=== PATIENT | female | born 2000 | race Caucasian/White ===

== ENCOUNTER 2020-07-27 15:27 | Emergency (ER) | payer OTHER, SELFPAY ==
--- NOTE | ~2020-07-27 | XR_ITS ---
XR hand LT min 3V DATE: 07/27/2020 16:57 INDICATION: Injury to left thumb. Pain. Diminished youth support worker. TECHNIQUE: 3 views COMPARISON: None FINDINGS: No fracture or dislocation, periosteal reaction or bone destruction. IMPRESSION: Negative Reviewed, dictated and finalized at location A. IMPRESSION: Negative
[2020-07-27 16:19] VITALS: BP 132/59; PULSE 67; RESP 17; TEMP 36.9; O2SAT 100
--- NOTE | 2020-07-27 19:03 | ED.GENADULT ---
HPI - General Adult General Chief complaint: Extremity Injury, Upper <Vasquez Red PA-C - Last Filed: 07/27/20 19:07> Stated complaint: thumb injury <SANDEE Johnston Last Filed: 07/27/20 19:07> Time Seen by Provider: 07/27/20 18:47 <SANDEE Johnston Last Filed: 07/27/20 19:07> Source: patient <SANDEE Johnston Last Filed: 07/27/20 19:07> Mode of arrival: ambulatory <Vasquez Red PA-C - Last Filed: 07/27/20 19:07> Limitations: no limitations <Vasquez Red PA-C - Last Filed: 07/27/20 19:07> History of Present Illness HPI narrative: Patient is a 20-year-old female who presents to emergency department for evaluation of 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 noting that she developed aching pain to the thenar eminence which is remained constant made worse with activity and movement denies similar occurrence in the past radiation of pain or other injuries or complaints has not taken anything for her pain <Vasquez Red PA-C - Last Filed: 07/27/20 19:07> Related Data Home medications: Home Medications Medication Instructions Recorded Confirmed No Home Medications 07/27/20 <Vasquez Red PA-C - Last Filed: 07/27/20 19:07> Allergies/adverse reactions: Allergies Allergy/AdvReac Type Severity Reaction Status Date / Time No Known Allergies Allergy Verified 07/27/20 19:04 <Vasquez Red PA-C - Last Filed: 07/27/20 19:07> Review of Systems Review of Systems: All systems reviewed & are unremarkable except as noted in HPI and below <Vasquez Red PA-C - Last Filed: 07/27/20 19:07> PMFSH Social History Social History: Social History (Updated 07/27/20 @ 19:04 by Vasquez Red PA-C) Smoking status: Never smoker Gender identity (if verbalized by the patient): Female <SANDEE Johnston Last Filed: 07/27/20 19:07> Exam Narrative: Exam Narrative: GENERAL: Well-appearing, well-nourished, and in no acute distress. HEAD: Normocephalic, atraumatic. EYES: PERRLA and EOMI. ENT: Nares clear, no rhinorrhea or epistaxis. Mucous membranes moist. EXTREMITIES: Normal range of motion. No edema. Tenderness of the thenar eminence no deformity noted SKIN: Warm, dry, no rash. NEURO: No focal deficits. Alert and oriented x3. Neurovascularly intact PSYCH: Normal mood and affect. <Vasquez Red PA-C - Last Filed: 07/27/20 19:07> Course Course Emergency Course: Patient in the room in no distress aware of case findings treatment plan diagnosis <Vasquez Red PA-C - Last Filed: 07/27/20 19:07> Vital Signs Vital signs: Vital Signs Temperature 36.9 C 07/27/20 16:19 Pulse Rate 67 07/27/20 16:19 Respiratory Rate 17 07/27/20 16:19 Blood Pressure 132/59 L 07/27/20 16:19 Pulse Oximetry 100 07/27/20 16:19 Temperature 36.9 C 07/27/20 16:19 Pulse Rate 67 07/27/20 16:19 Respiratory Rate 17 07/27/20 16:19 Blood Pressure 132/59 L 07/27/20 16:19 Pulse Oximetry 100 07/27/20 16:19 <Vasquez Red PA-C - Last Filed: 07/27/20 19:07> Vital Signs Temperature 36.9 C 07/27/20 16:19 Pulse Rate 67 07/27/20 16:19 Respiratory Rate 17 07/27/20 16:19 Blood Pressure 132/59 L 07/27/20 16:19 Pulse Oximetry 100 07/27/20 16:19 Temperature 36.9 C 07/27/20 16:19 Pulse Rate 67 07/27/20 16:19 Respiratory Rate 17 07/27/20 16:19 Blood Pressure 132/59 L 07/27/20 16:19 Pulse Oximetry 100 07/27/20 16:19 <Meenu Rinaldi MD - Last Filed: 07/27/20 19:13> Medical Decision Making MDM Narrative Medical decision making narrative: Patients injury or pain is consistent with musculoskeletal etiology. No signs of neurological or vascular compromise on exam. Compartments and tisues are soft without signs of compartment syndrome. Pain is felt appropriate for further evaluation on an outpatient basis. <Vasquez La
--- NOTE | 2020-07-27 19:30 | PC.NURSE ---
rn applied monet wrap to left hand. ari villeda made aware. pt able to be discharged at this time.
== END 2020-07-27 19:32 | disposition home or self-care (01) ==
LOC: ANHED 19:21
PROVIDERS: Emergency Provider Emergency Medicine
DX: S56.312A Strain of extensor or abductor muscles, fascia and tendons of left thumb at forearm level, initial encounter (principal); X50.0XXA Overexertion from strenuous movement or load, initial encounter
CPT/HCPCS: 73130; 99283

== ENCOUNTER 2021-09-01 11:42 | Emergency (ER) | payer SELFPAY ==
--- NOTE | ~2021-09-01 | XR_ITS ---
EXAMINATION: XR chest 2V 09/01/2021 12:35 INDICATION: Left-sided chest pain and shortness of breath PROCEDURE: 2 view chest COMPARISON: No prior studies for comparison. FINDINGS: The lungs are clear. The cardiomediastinal silhouette is within normal limits. There are no pleural effusions. There is no pneumothorax suspected. IMPRESSION: 1: NO ACUTE CARDIOPULMONARY DISEASE. Reviewed, dictated and finalized at location A. ON [employer]TER
[2021-09-01 11:50] VITALS: BP 139/53; PULSE 66; RESP 18; TEMP 36.1; O2SAT 100
--- NOTE | 2021-09-01 11:57 | ECG_ITS ---
Measurements Intervals [place] Rate: 64 P: 42 VA: 155 QRS: 47 QRSD: 89 T: 34 QT: 406 QTc: 419 Interpretive Statements SINUS RHYTHM NORMAL ECG Electronically Signed On 09-01-2021 19:39:26 [employer]TER by Ranjeet Rush D.O.
--- NOTE | 2021-09-01 12:23 | PC.NURSE ---
triage tech unable to get blood at this time
[2021-09-01] MEDS: ASPIRIN 81 MG CHEWABLE TABLET 324 MG PO (13:51)
[2021-09-01 14:14] VITALS: BP 116/64; PULSE 62
[2021-09-01 14:15] VITALS: BP 117/63; PULSE 69
[2021-09-01 14:17] VITALS: BP 121/59; PULSE 74
[2021-09-01 14:22] LABS: Anion Gap 5 mmol/L (8-16); Blood Urea Nitrogen 17 mg/dL (7-17); Calcium 9.4 mg/dL (8.4-10.2); Carbon Dioxide 27 mmol/L (22-30); Chloride 105 mmol/L (98-107); Estimated CRCL calculation 118 ml/min; Estimated Glomerular Filt Rate > 60; Glucose 95 mg/dL (65-110); Potassium 4.6 mmol/L (3.4-5.0); Sodium 137 mmol/L (137-145)
[2021-09-01 14:28] LABS: Prothrombin Time 12.7 Seconds (11.1-14.7)
[2021-09-01 14:29] LABS: Partial Thromboplastin Time 29.4 SECONDS (22.3-36.8)
[2021-09-01 14:34] LABS: Troponin I < 0.012 ng/mL (0.000-0.034)
[2021-09-01 14:36] LABS: Basophils Percent Auto 0.3 % (0.2-1.2); Eosinophils Absolute Auto 0.1 K/mm3 (0-0.3); Eosinophils Percent Auto 0.7 % (0-4.4); Hematocrit 37.1 % (37.0-47.0); Hemoglobin 12.5 g/dL (12.0-15.0); Immature Granulocyte Absolute 0.03 K/mm3 (0.00-0.031); Immature Granulocyte Percent A 0.4 % (0-0.5); Lymphocytes Absolute Auto 1.95 K/mm3 (0.9-3.2); Lymphocytes Percent Auto 25.4 % (18.3-44.2); Mean Corpuscular HGB Conc 33.7 g/dl (32-36); Mean Corpuscular Hemoglobin 28.6 pg (26-34); Mean Corpuscular Volume 84.9 fl (80-100); Monocytes Absolute Auto 0.6 K/mm3 (0.1-0.6); Monocytes Percent Auto 7.7 % (2.6-8.5); Neutrophils Absolute Auto 5.1 K/mm3 (1.3-6.7); Neutrophils Percent Auto 65.5 % (45.5-73.1); Platelet Count Result 314 k/mm3 (150-375); Red Blood Count 4.37 M/mm3 (4.2-5.4); Red Cell Distribution Width 12.9 % (11.5-14.5); White Blood Count 7.7 K/mm3 (4.5-10.0)
[2021-09-01 16:15] LABS: Add Urine Microscopic? YES; Appearance Urine Cloudy (Clear); Bilirubin Urine Negative (Negative); Blood Urine Negative (Negative); Budding Yeast Urine Present /hpf; Color Urine Yellow (Yellow); Glucose Urine UA Negative (Negative); Ketones Urine Negative (Negative); Leukocyte Esterase Ur Negative LEU/UL (Negative); Mucus Urine Rare /lpf; Nitrate Urine Negative (Negative); Protein Urine Negative (Negative); Specific Grav Ur 1.021 (1.001-1.035); Squamous Epithelial Cell Urine Many /hpf (Few); Urobilinogen Urine Negative mg/dL (<2.0)
[2021-09-01 17:06] VITALS: BP 125/64; PULSE 68; RESP 16; O2SAT 100
--- NOTE | 2021-09-01 19:38 | ED.CHESTPAIN ---
HPI - Chest Pain General Chief Complaint: Chest Pain Stated Complaint: CP, dizziness Time Seen by Provider: 09/01/21 13:37 Source: patient Mode of arrival: ambulatory Limitations: no limitations History of Present Illness HPI narrative: Patient is a 21-year-old female presenting with chief complaint of dizziness, left-sided chest pain and hot flashing while working yesterday evening at approximately 5 PM. Patient reports that she had another episode at approximately 9 PM. She reports the pain feels like a pressure, she denies any radiation of pain. Patient reports that she was not doing any strenuous work. She reports that she has had something to both eat and drink. Patient denies syncope. She reports at the time that her chest was tight but then it resolved without intervention. Patient reports when he returned at 9 PM she was using ibuprofen and her symptoms resolved and she was able to sleep. She denies being awoken by any chest pain during her sleep. Patient reports that her only symptom presently is a light pressure sensation to the left side of her chest. She reports that she was instructed to come here for evaluation by her job. Patient denies history of heart attack or stroke. Patient denies any chronic medical conditions. Patient denies use of any recreational drugs. She denies family history of heart attacks at young age. Related Data Home Medications Medication Instructions Recorded Confirmed No Home Medications 07/27/20 Allergies Allergy/AdvReac Type Severity Reaction Status Date / Time No Known Allergies Allergy Verified 07/27/20 19:04 Review of Systems Review of Systems: CONSTITUTIONAL: Denies fever, chills, or sweats. EYES: Denies visual changes, redness, or discharge. ENT: Denies rhinorrhea, congestion, sore throat, or otalgia. CARDIOVASCULAR: Reports chest pain denies palpitations, or edema. RESPIRATORY: Denies cough or dyspnea. GASTROINTESTINAL: Denies abdominal pain, nausea, vomiting, or diarrhea. GENITOURINARY: Denies dysuria or hematuria. SKIN: Denies rash or itching. MUSCULOSKELETAL: Denies back pain, joint pain, or myalgia. NEUROLOGIC: Denies headache, numbness, dizziness, or weakness. PSYCHIATRIC: Denies anxiety or depression. [facility] Social History Social History (Updated 07/27/20 @ 19:04 by Vasquez Red PA-C) Smoking status: Never smoker Gender identity (if verbalized by the patient): Female Exam Narrative: GENERAL: Well-appearing, well-nourished, and in no acute distress. Patient does not appear to be in discomfort. HEAD: Normocephalic, atraumatic. EYES: PERRLA and EOMI. CHEST: No tenderness to palpation. clear to auscultation. No respiratory distress. No wheezes rales or rhonchi. Speaking clearly without difficulty. HEART: Regular rate and rhythm. No murmur heard. Normal peripheral pulses. EXTREMITIES: Normal range of motion. No edema. SKIN: Warm, dry, no rash. NEURO: No focal deficits. Alert and oriented x3. PSYCH: Normal mood and affect. Course Vital Signs Vital signs: Vital Signs Temperature 97.0 F L 09/01/21 11:50 Pulse Rate 66 09/01/21 11:50 Respiratory Rate 18 09/01/21 11:50 Blood Pressure 139/53 L 09/01/21 11:50 Pulse Oximetry 100 09/01/21 11:50 Temperature 97.0 F L 09/01/21 11:50 Pulse Rate 68 09/01/21 17:06 Respiratory Rate 16 09/01/21 17:06 Blood Pressure 125/64 09/01/21 17:06 Pulse Oximetry 100 09/01/21 17:06 MDM - Chest Pain MDM Narrative Medical decision making narrative: Patient's EKG, chest x-ray, work-up and troponin are negative. Patient symptoms began yesterday. She reports resolution and does not want to stay for delta troponin. Patient heart score is 0, discharge is recommended. Patient instructed to follow-up with her primary care for follow-up and further evaluation as her symptoms. Patient has been in return to emergency department for chest pain returns, she has neurologic deficits, shortness of
== END 2021-09-01 17:08 | disposition home or self-care (01) ==
PROVIDERS: Emergency Medicine; Physician Assistant; Emergency Provider Emergency Medicine
DX: R07.9 Chest pain, unspecified (principal)
CPT/HCPCS: 36415; 71046; 80048; 81001; 81025; 84443; 84484; 85025; 85610; 85730; 93005; 99284; A9270

== ENCOUNTER 2022-12-29 16:29 | Emergency (ER) | payer SELFPAY ==
[2022-12-29 16:41] VITALS: BP 125/59; PULSE 66; RESP 12; TEMP 36.4; O2SAT 100
--- NOTE | 2022-12-29 16:56 | PC.NURSE ---
1645 i and d set up at bedside.
--- NOTE | 2022-12-29 17:16 | ED.SKABFB ---
HPI - Skin/Abscess/Foreign Bdy General Chief complaint: Skin/Abscess/Foreign Body Stated complaint: Bump Under Left Armpit Time Seen by Provider: 12/29/22 17:16 Source: patient Mode of arrival: ambulatory Limitations: no limitations History of Present Illness HPI narrative: 22-year-old female presenting for complaint of lump under the left axilla worsening over the last 3 days. She has applied tea tree oil and warm compresses and states it has drained a little pus and blood and is a little smaller. Endorses red, warm, and painful. Denies n/v/d/f/c. Denies any other locations of similar lesions. Related Data Allergies Allergy/AdvReac Type Severity Reaction Status Date / Time No Known Allergies Allergy Verified 12/29/22 16:32 Review of Systems Review of Systems: CONSTITUTIONAL: Denies body aches, fever, chills, or sweats. EYES: Denies visual changes, redness, or discharge. ENT: Denies rhinorrhea, congestion CARDIOVASCULAR: Denies chest pain, palpitations, or edema. RESPIRATORY: Denies cough or dyspnea. GASTROINTESTINAL: Denies abdominal pain, nausea, vomiting, or diarrhea. SKIN: per HPI MUSCULOSKELETAL: Denies back pain, joint pain, or myalgia. NEUROLOGIC: Denies headache, numbness, tingling, or weakness. [facility] Past Medical History Medical History (Updated 12/29/22 @ 17:56 by Lizbet Sprague APRN) No pertinent past medical history Social History Social History Smoking status: Never smoker Gender identity (if verbalized by the patient): Female Comments At time of signature, I have reviewed and agree with nursing past medical, surgical, social and family history unless otherwise noted. Please see nursing chart for further information. There is no relevant family history pertinent to the presenting complaint Exam Narrative: GENERAL: Well-appearing CHEST: Clear to auscultation. HEART: Regular rate and rhythm. SKIN: Warm, dry. Abscess to left axilla approx [id number], fluctuant center with surrounding induration, no active drainage NEURO: Alert and oriented x3. Course Course Emergency Course: Patient is aware of diagnosis, understands and agrees to treatment plan. Anticipatory guidance given. Patient agrees to follow-up as directed and is aware of reasons to seek care at the emergency department. Portions of this record may have been created with voice recognition software Level of Care: Express Care Visit Vital Signs Vital signs: Vital Signs Temperature 97.6 F 12/29/22 16:41 Pulse Rate 66 12/29/22 16:41 Respiratory Rate 12 12/29/22 16:41 Blood Pressure 125/59 L 12/29/22 16:41 Pulse Oximetry 100 12/29/22 16:41 Oxygen Delivery Room Air 12/29/22 16:41 Temperature 97.6 F 12/29/22 16:41 Pulse Rate 66 12/29/22 16:41 Respiratory Rate 12 12/29/22 16:41 Blood Pressure 125/59 L 12/29/22 16:41 Pulse Oximetry 100 12/29/22 16:41 Oxygen Delivery Room Air 12/29/22 16:41 Reviewed Procedures Abscess I/D left axilla: Date of Incision: 12/29/22 Local Anesthetic: lidocaine 1% Amount of anesthesia used (mL): 3 Technique: incised with #11 blade and probed loculations Irrigation: Yes Packing used?: iodoform I&D Results: Pus and Blood Abcess I&D Additional Comments: Verbal consent obtained. Site cleansed. Incision made to center of area of fluctuance after local anesthesia achieved. Copious amount of thick purulent discharge expelled with manual pressure. Wound irrigated and probed for loculations. Packing used. Pt tolerated the procedure well. Dressing applied per RN. MDM - Skin/Abscess/Foreign Bdy MDM Narrative Medical decision making narrative: Patient tolerated I&D of left axilla abscess. culture sent. Rx doxy sent. Advised supportive measures and signs/symptoms to go to the ER. Pt is appropriate for outpt treatment and f/u. Differential Diagnosis
== END 2022-12-29 17:58 | disposition home or self-care (01) ==
PROVIDERS: Emergency Provider Nurse Practitioner Family
DX: L02.412 Cutaneous abscess of left axilla (principal)
CPT/HCPCS: 10060; 87070; 87205; 99213; G0463

== ENCOUNTER 2023-01-14 15:10 | Emergency (ER) | payer SELFPAY ==
--- NOTE | 2023-01-14 15:13 | ED.URI ---
HPI - URI/Sore Throat General Chief Complaint: Upper Respiratory Infection Stated Complaint: sore throat Time Seen by Provider: 01/14/23 16:02 Source: patient and RN notes reviewed Mode of arrival: ambulatory Limitations: no limitations History of Present Illness HPI Narrative: 22 year old female for sore headache low-grade temperature this started yesterday. She denies known sick contacts. Reports she has been taking ibuprofen. MD elicited complaint: sore throat Related Data Allergies Allergy/AdvReac Type Severity Reaction Status Date / Time No Known Allergies Allergy Verified 01/14/23 15:21 Review of Systems Review of Systems: CONSTITUTIONAL: Denies malaise, chills, sweats. Reports fever. EYES: Denies visual changes, redness, or discharge. ENT: Denies rhinorrhea, congestion, sinus pain, otalgia. Reports sore throat. CARDIOVASCULAR: Denies chest pain, palpitations, or edema. RESPIRATORY: Denies cough. Denies dyspnea. GASTROINTESTINAL: Denies abdominal pain, nausea, vomiting, diarrhea SKIN: Denies rash or itching. MUSCULOSKELETAL: Reports myalgia. NEUROLOGIC: Denies headache. All systems reviewed & are unremarkable except as noted in HPI and below PMFSH Past Medical History Medical History (Updated 01/14/23 @ 16:11 by Zena Valdes NP) No pertinent past medical history Social History Social History Smoking status: Never smoker Gender identity (if verbalized by the patient): Female Comments At time of signature, agree with nursing past medical, surgical, social and family history. There is no relevant family history pertinent to the presenting complaint Exam Narrative: GENERAL: Well-appearing, well-nourished, and in no acute distress. HEAD: Normocephalic EYES: PERRLA, conjunctivae clear ENT: Nares clear. Mucous membranes moist. TM pearly resendiz with sharp light reflex bilaterally; no tragal tenderness. Oropharynx erythematous without lesions. Tonsils enlarged with exudate, no drooling, no hoarseness, no trismus, uvula midline. NECK: Supple. No lymphadenopathy CHEST: Clear to auscultation, breath sounds equal. No wheezing, rhonchi, rales, or stridor. No respiratory distress, speaks in full sentences. HEART: Regular rate and rhythm. No murmur heard. SKIN: Warm, dry, no rash. NEURO: Alert and oriented x3. PSYCH: Normal mood and affect Course Course Emergency Course: Patient is aware of diagnosis, understands and agrees to treatment plan. Anticipatory guidance given. Patient agrees to follow-up as directed and is aware of reasons to seek care at the emergency department. Portions of this record may have been created with voice recognition software Level of Care: Express Care Visit Vital Signs Vital signs: Reviewed. MDM - URI/Sore Throat MDM Narrative Medical decision making narrative: Differential diagnosis considered: Tadeo virus, strep pharyngitis, allergic rhinitis, upper respiratory tract infection, sinusitis, rhinosinusitis, nasopharyngitis. viral pharyngitis, otitis media, otitis externa, pneumonia, bronchitis, viral cough syndrome, viral syndrome, and influenza. Exam findings show no acute concerns or changes; patient is non-toxic appearing and is in no distress. Patient is appropriate for outpatient treatment and follow-up. Lab Data Attestation: I reviewed the patient's lab results. Critical Care Time Critical Care Time Critical Care Time: No Discharge Plan Discharge Clinical Impression: Acute streptococcal pharyngitis Patient Disposition: Home, Self-Care Condition: Stable Instructions: Antibiotic Form, Strep Throat (ED) Additional Instructions: -Take the medication as prescribed. Throw away the toothbrush after 24hours of antibiotic. -Eat and drink things that are easy to swallow, like tea or soup, or popsicles to suck on. -Oral rinses such as: Salt water gargles and/or may use topical anesthetic (eg. Chloraseptic s
[2023-01-14 15:17] VITALS: BP 132/71; PULSE 96; RESP 16; TEMP 37.7; O2SAT 99
== END 2023-01-14 16:16 | disposition home or self-care (01) ==
PROVIDERS: Emergency Provider Nurse Practitioner
DX: J02.0 Streptococcal pharyngitis (principal)
CPT/HCPCS: 87880; 99213; G0463

== ENCOUNTER 2025-01-08 07:39 | Emergency (ER) | payer SELFPAY ==
--- NOTE | ~2025-01-08 | CT_ITS ---
CT of the Abdomen and Pelvis: Indication: Abdominal pain Technique: 2.5 mm axial scans were obtained through the abdomen and pelvis following intravenous adm inistration of 100 cc of Omnipaque 350. Dose reduction technique was used on this scan by utilizing a utomated exposure control and iterative reconstruction technique. The dose-length product (DLP) was 1 714.16 mGy-cm. Findings: Scans through the lung bases are unremarkable. The liver, spleen, pancreas, gallbladder, adrenals and kidneys are within normal limits. No evidence of aortic aneurysm. No lymphadenopathy. No bowel obstruction or bowel wall thickening. There is no evidence to suggest acute appendicitis. Images through the pelvis were performed. Urinary bladder unremarkable. No significant adnexal mass s een. Small amount of pelvic ascites present. Impression: Small amount of pelvic ascites, nonspecific. Consider prior ovarian cyst rupture. Reviewed, dictated and finalized at [facility]. Impression: Small amount of pelvic ascites, nonspecific. Consider prior ovarian cyst ruptur e.
--- OUTSIDE RECORDS SUMMARY | 2025-01-08 07:44 | XMS_ITS | Clinical Summary ---
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 Gender Identity Not on file Sexual Orientation Not on file Plan of Treatment Health Maintenance Due Date Last Done Comments Hepatitis C Virus (HCV) Screening 2000 TdaP Immunization 2000 Human Papillomavirus (HPV) Immunization (1 - 3-dose series) 2015 Hepatitis B Immunization (1 of 3 - 19+ 3-dose series) 2019 Pap Smear 2021 Influenza Immunization (#1) 2024 SARS-COV-2 Immunization ( season) 2024 Respiratory Syncytial Virus (RSV) Immunization (Adult) (1 - 1-dose 75+ series) 2075 Meningococcal Immunization (ACWY) Aged Out No longer eligible based on patient's age to complete this topic Pneumococcal Immunization Combined Aged Out No longer eligible based on patient's age to complete this topic Rotavirus Immunization Aged Out No lo nger eligible based on patient's age to complete this topic
[2025-01-08 07:51] VITALS: BP 139/58; PULSE 77; RESP 16; TEMP 36.9; O2SAT 100
[2025-01-08 07:55] LABS: BEDSIDEPREGUCG Negative (Negative)
--- NOTE | 2025-01-08 07:55 | ED.ABDPAIN ---
HPI - Abdominal Pain General Chief Complaint: Abdominal Pain Stated Complaint: ABD PAIN X4D Time Seen by Provider: 01/08/25 07:55 Source: patient Mode of arrival: ambulatory Limitations: no limitations History of Present Illness HPI narrative: 24 years old female came to the ED complaining of right lower quadrant pain started 4 days ago, initially was intermittent, has been steady over the last 2 days associated with nausea. She denies any fever, diarrhea, constipation, last menstrual period 1 month ago. Patient is healthy otherwise, no history of abdominal surgery. Related Data Allergies Allergy/AdvReac Type Severity Reaction Status Date / Time No Known Allergies Allergy Verified 01/08/25 07:39 Review of Systems Review of Systems: All systems reviewed & are unremarkable except as noted in HPI and below PMFSH Past Medical History Medical History No pertinent past medical history Social History Social History Smoking status: Never smoker Gender identity (if verbalized by the patient): Female Exam Narrative: General appearance: Well-developed, well-nourished Skin: Normal color Head: Normocephalic, nontraumatic Eyes: Clear conjunctiva ENT: Oropharynx normal, ears normal, nose normal Neck: Supple, nontender Chest and respiratory: Airway patent, no respiratory distress, no accessory muscle use Heart: Regular rate/rhythm Abdomen: Soft, right lower quadrant tenderness, no organomegaly, quiet bowel sounds Vascular: Normal peripheral pulses, normal capillary refill. 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, no gross motor deficit Course Vital Signs Vital signs: Vital Signs Temperature 36.9 C 01/08/25 07:51 Pulse Rate 77 01/08/25 07:51 Respiratory Rate 16 01/08/25 07:51 Blood Pressure 139/58 L 01/08/25 07:51 Pulse Oximetry 100 01/08/25 07:51 Temperature 36.9 C 01/08/25 07:51 Pulse Rate 77 01/08/25 07:51 Respiratory Rate 16 01/08/25 07:51 Blood Pressure 139/58 L 01/08/25 07:51 Pulse Oximetry 100 01/08/25 07:51 MDM - Abdominal Pain MDM Narrative Medical decision making narrative: Patient came to the ED with right lower quadrant pain Vital signs are stable Physical examination consistent with tenderness right lower quadrant without guarding or rebound Differential diagnosis include appendicitis, cholecystitis, ovarian cyst, urinary tract infection, constipation, colitis, diverticulitis, urinary tract infection Blood workup today includes CBC, CMP lipase showed no significant abnormality Urinalysis showed no signs of infection CT abdomen and pelvis with IV contrast showed Small amount of pelvic ascites, nonspecific. Consider prior ovarian cyst rupture. Diagnosis abdominal pain of unknown etiology, ovarian cyst rupture-suspected, discharged on ibuprofen as needed The pt was discharged to home.the pt,s condition upon discharge was fair,education was provided to the pt in reference to the final impression,discharge study results,treatment,prognosis and need for follow up . Differential Diagnosis Differential diagnosis: Likely abdominal pain, acute appendicitis, calculus of kidney, constipation and diverticulitis Lab Data 01/08/25 07:53 01/08/25 07:54 Labs: Lab Results 01/08/25 01/08/25 01/08/25 Range/Units 07:52 07:53 07:54 WBC 7.5 (4.5-10.0) K/mm3 RBC 4.60 (4.2-5.4) M/mm3 Hgb 12.8 (12.0-15.0) g/dL Hct 38.5 (37.0-47.0) % MCV 83.7 (80-100) fl MCH 27.8 (26-34) pg MCHC 33.2 (32-36) g/dl RDW 13.2 (11.5-14.5) % Plt Count 315 (150-375) k/mm3 MPV 8.9 (7.4-10.4) fl Immature Gran % (Auto) 0.3 (0-0.5) % Neut % (Auto) 64.7 (45.5-73.1) % Lymph % (Auto) 26.5 (18.3-44.2) % Graham % (Auto) 6.8 (2.6-8.5) % Eos % (Auto) 1.3 (0-4.4) % Baso % (Auto) 0.4 (0.2-1.2) % Lymph # (Auto) 1.99 (0.9-3.2) K/mm3 Graham # (Auto) 0.5 (0.1-0.6) K/mm3 Eos # (Auto) 0.1 (0-0.3) K/mm3 Baso # (Auto) 0.0 (0.0-0.1) K/mm3 Abs Immat Gran (auto) 0.02 (0.00-0.031) K/mm3 Absolute Neuts (auto) 4.9 (1.3-6.7) K/mm3 Absolute Nucleated RBC 0.000 (0.0-0.012) K/mm3 Nucleated RBC % 0.0 (0.0-0.2) % Sodium 139 (137-145) mmol/L Potassium 3.9 (3.4-5.0) mmol/L Chloride 107 (98-107) mmol/L Carbon Dioxide 22 (22-30) mmol/L Anion Gap 10 (4-12) mmol/L BUN 11 D (7-17) mg/dL Creatinine 0.66 L (0.7-1.0) mg/dL Estim Creat Clear Calc 144 ml/min Estimated GFR > 60 (59 - ) Glucose 94 (65-110) mg/dL Calcium 9.1 (8.4-10.2) mg/dL Total Bilirubin 0.7 (0.2-1.3) mg/dL AST 19 (14-36) U/L ALT 18 (6-35) U/L Alkaline Phosphatase 62 (38-126) U/L Total Protein 8.0 (6.3-8.2) g/dL Albumin 4.2 (3.5-5.1) g/dL Lipase 108 (23-300) U/L Urine Color Yellow (Yellow) Urine Appearance Clear (Clear) Urine pH 7.5 (5.0-9.0) Ur Specific [place] 1.001 (1.001-1.035) Urine Protein Negative (Negative) mg/dL Urine Glucose (UA) Negative (Negative) mg/dL Urine Ketones Negative (Negative) mg/dL Ur Blood (Man) Negative (Negative) Urine Nitrate Negative (Negative) Urine Bilirubin Negative (Negative) Urine Urobilinogen 0.2 (<2.0) mg/dL Leukocyte Esterase Rfl Negative (Negative) LILLI/UL POC Urine HCG, Qual Negative (Negative) Imaging Data Radiologist's impression: ITS Impressions Abdomen/Pelvis CT 01/08/25 08:38 Impression: Small amount of pelvic ascites, nonspecific. Consider prior ovarian cyst rupture. Critical Care Time Critical Care Time Critical Care Time: No Discharge Plan Discharge Clinical Impression: Abdominal pain Patient Disposition: Home, Self-Care Condition: Stable Instructions: Abdominal Pain (ED) Additional Instructions: Return if symptoms are worsening , call your family physician for appointment, take Tylenol as as needed for aches and pain, continue home medications. Patient Language: Upper Sorbian Prescriptions: No Action penicillin V potassium 500 mg tablet 500 mg PO Q12H 10 Days Qty: 20 0RF Follow-up/Referrals: Bryce Palacios MD [Physician] - 01/12/25 UNKNOWN,DOCTOR [Non-Staff] -
[2025-01-08] MEDS: SODIUM CHLORIDE 0.9% IV 1,000 ML 999 ML IV CONT (08:01)
[2025-01-08] MEDS: ONDANSETRON INJ 4 MG/2 ML VIAL IV PUSH (08:01)
[2025-01-08 08:03] LABS: Basophils Percent Auto 0.4 % (0.2-1.2); Eosinophils Absolute Auto 0.1 K/mm3 (0-0.3); Eosinophils Percent Auto 1.3 % (0-4.4); Hematocrit 38.5 % (37.0-47.0); Hemoglobin 12.8 g/dL (12.0-15.0); Immature Granulocyte Absolute 0.02 K/mm3 (0.00-0.031); Immature Granulocyte Percent A 0.3 % (0-0.5); Lymphocytes Absolute Auto 1.99 K/mm3 (0.9-3.2); Lymphocytes Percent Auto 26.5 % (18.3-44.2); Mean Corpuscular HGB Conc 33.2 g/dl (32-36); Mean Corpuscular Hemoglobin 27.8 pg (26-34); Mean Corpuscular Volume 83.7 fl (80-100); Mean Platelet Volume 8.9 fl (7.4-10.4); Monocytes Absolute Auto 0.5 K/mm3 (0.1-0.6); Monocytes Percent Auto 6.8 % (2.6-8.5); Neutrophils Absolute Auto 4.9 K/mm3 (1.3-6.7); Neutrophils Percent Auto 64.7 % (45.5-73.1); Platelet Count Result 315 k/mm3 (150-375); Red Cell Distribution Width 13.2 % (11.5-14.5); White Blood Count 7.5 K/mm3 (4.5-10.0)
[2025-01-08 08:13] LABS: Alanine Aminotransferase 18 U/L (6-35); Albumin Level 4.2 g/dL (3.5-5.1); Alkaline Phosphatase 62 U/L (38-126); Anion Gap 10 mmol/L (4-12); Aspartate Amino Transferase 19 U/L (14-36); Bilirubin,Total 0.7 mg/dL (0.2-1.3); Blood Urea Nitrogen 11 mg/dL (7-17); Calcium 9.1 mg/dL (8.4-10.2); Carbon Dioxide 22 mmol/L (22-30); Chloride 107 mmol/L (98-107); Estimated CRCL calculation 144 ml/min; Estimated Glomerular Filt Rate > 60; Glucose 94 mg/dL (65-110); Lipase 108 U/L (23-300); Potassium 3.9 mmol/L (3.4-5.0); Sodium 139 mmol/L (137-145)
[2025-01-08 08:14] LABS: Add Urine Microscopic? NO; Appearance Urine Clear (Clear); Bilirubin Urine Negative (Negative); Blood Urine Negative (Negative); Color Urine Yellow (Yellow); Glucose Urine UA Negative (Negative); Ketones Urine Negative (Negative); Leukocyte Esterase Ur Negative LEU/UL (Negative); Nitrate Urine Negative (Negative); Protein Urine Negative (Negative); Specific Grav Ur 1.001 (1.001-1.035); Urobilinogen Urine 0.2 mg/dL (<2.0); pH Urine 7.5 (5.0-9.0)
--- OUTSIDE RECORDS SUMMARY | 2025-01-08 08:31 | XMS_ITS | Clinical Summary ---
Author Organization [facility] Care Team Providers Care Flotation Tank Operator Name Role Phone Unavailable Primary Care Provider Unavailabl e Social History Tobacco Use Types Packs/Day Years Used Date Smoking Tobacco: Never Assessed Comments Unknown Sex and Gender Information Value Date Recorded Sex Assigned at Not on file Legal Sex Female 1:07 PM SLEEP TECH Gender Identity Not on file Sexual Orientation [...]
== END 2025-01-08 10:11 | disposition home or self-care (01) ==
PROVIDERS: Emergency Provider Emergency Medicine
DX: R10.31 Right lower quadrant pain (principal)
CPT/HCPCS: 36415; 74177; 80053; 81003; 81025; 83690; 85025; 96361; 96374; 99284; J2405; J7030; Q9967

== ENCOUNTER 2025-04-03 10:59 | Outpatient (CLI) | payer OTHER, SELFPAY ==
--- OUTSIDE RECORDS SUMMARY | 2025-04-03 11:04 | XMS_ITS | Clinical Summary ---
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
[2025-04-03 13:02] LABS: Hematocrit 35.6 % (37.0-47.0); Hemoglobin 11.9 g/dL (12.0-15.0); Mean Corpuscular HGB Conc 33.4 g/dl (32-36); Mean Corpuscular Hemoglobin 28.6 pg (26-34); Mean Corpuscular Volume 85.6 fl (80-100); Mean Platelet Volume 9.4 fl (7.4-10.4); Platelet Count Result 280 k/mm3 (150-375); Red Blood Count 4.16 M/mm3 (4.2-5.4); Red Cell Distribution Width 13.5 % (11.5-14.5); White Blood Count 7.9 K/mm3 (4.5-10.0)
[2025-04-03 13:31] LABS: Alanine Aminotransferase 18 U/L (6-35); Albumin Level 3.6 g/dL (3.5-5.1); Alkaline Phosphatase 46 U/L (38-126); Anion Gap 8 mmol/L (4-12); Aspartate Amino Transferase 27 U/L (14-36); Bilirubin,Total 0.4 mg/dL (0.2-1.3); Blood Urea Nitrogen 6 mg/dL (7-17); Calcium 9.4 mg/dL (8.4-10.2); Carbon Dioxide 19 mmol/L (22-30); Chloride 108 mmol/L (98-107); Estimated Glomerular Filt Rate > 60; Glucose 130 mg/dL (65-110); Glucose 1 Hour PP 50gm Dose 129 mg/dL; Lactate Dehydrogenase 133 U/L (120-246); Potassium 3.6 mmol/L (3.4-5.0); Sodium 135 mmol/L (137-145); Total Protein 6.8 g/dL (6.3-8.2); Uric Acid 3.9 mg/dL (2.5-7.5)
[2025-04-03 13:37] LABS: Creatinine Urine 140.8 mg/dL; Total Protein Urine Random 10 mg/dL
[2025-04-03 13:54] LABS: Syphilis IgG/IgM Antibody Non-Reactive (Nonreactive)
[2025-04-03 14:00] LABS: Hepatitis B Surface Antigen Negative (Negative)
[2025-04-03 14:10] LABS: Rubella IgG Antibody 46.3 IU/ML
[2025-04-03 14:11] LABS: HIV 1/2 Ab P24 Ag Result Negative (Negative)
[2025-04-06 16:59] LABS: CMV IgG Antibody >10.00 U/mL
== END 2025-04-03 11:00 | disposition home or self-care (01) ==
PROVIDERS: Referring Provider Obstetrics & Gynecology; Visit Provider Student in an Organized Health Care Education/Training Program
DX: N91.2 Amenorrhea, unspecified (principal); O16.1 Unspecified maternal hypertension, first trimester; Z3A.00 Weeks of gestation of pregnancy not specified
CPT/HCPCS: 36415; 80053; 81050; 82570; 82947; 83615; 84156; 84550; 84702; 85027; 86593; 86644; 86703; 86747; 86762; 86787; 86850; 86900; 86901; 87086; 87340; G0432

== ENCOUNTER 2025-07-03 11:56 | Outpatient (CLI) | payer OTHER, SELFPAY ==
[2025-07-03 13:26] LABS: Hematocrit 33.5 % (37.0-47.0); Hemoglobin 11.3 g/dL (12.0-15.0); Immature Granulocyte Percent A 0.3 % (0-0.5); Lymphocytes Absolute Auto 1.17 K/mm3 (0.9-3.2); Mean Corpuscular HGB Conc 33.7 g/dl (32-36); Mean Corpuscular Hemoglobin 29.0 pg (26-34); Mean Corpuscular Volume 86.1 fl (80-100); Nucleated Red Blood Cells Absolute Auto 0.000 K/mm3 (0.0-0.012); Nucleated Red Blood Cells Perc 0.0 % (0.0-0.2); Platelet Count Result 279 k/mm3 (150-375); Red Blood Count 3.89 M/mm3 (4.2-5.4); White Blood Count 8.6 K/mm3 (4.5-10.0)
[2025-07-03 13:46] LABS: Glucose 1 Hour PP 50gm Dose 161 mg/dL
[2025-07-03 14:15] LABS: Syphilis IgG/IgM Antibody Non-Reactive (Nonreactive)
[2025-07-03 14:35] LABS: HIV 1/2 Ab P24 Ag Result Negative (Negative)
== END 2025-07-03 11:57 | disposition home or self-care (01) ==
LOC: ANHLAB 11:58
PROVIDERS: Visit Provider Obstetrics & Gynecology
DX: Z34.90 Encounter for supervision of normal pregnancy, unspecified, unspecified trimester (principal); Z3A.00 Weeks of gestation of pregnancy not specified
CPT/HCPCS: 36415; 82947; 85025; 86593; 86703; G0432

== ENCOUNTER 2025-07-10 07:00 | Outpatient (CLI) | payer OTHER, SELFPAY ==
--- OUTSIDE RECORDS SUMMARY | 2025-07-10 07:03 | XMS_ITS | Clinical Summary ---
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
--- OUTSIDE RECORDS SUMMARY | 2025-07-10 07:03 | XMS_ITS | Encounter Summary ---
Author Organization [facility] Address [address] [place] [address] Care Team Providers Care Underwear Trimmer Name Role Phone Roderick Almeida MD Primary Care Provider [phone] Reason for Visit * Reason Onset Date Comments Imaging Results 05/17/2017 Encounter Details Date Type Department Care Team (Late st Contact Info) Description 05/17/2017 Telephone [facility] Pediatrics - Neurology [address] [place] [id number] Negrita Khan APRN-ESTIMATOR PAPERBOARD BOXES [facility] [place] [address] Imaging Results Social History Tobacco Use Types Packs/Day Years Used Date Smoking Tobacco: Never Smokeless Tobacco: Never Alcohol Use Standard Drinks/Week Comments No 0 (1 standard drink = 0.6 oz pur e alcohol) Comments No Sex and Gender Information Value Date Recorded Sex Assigned at Not on file Legal Sex Female 5:45 AM DIRECTOR DERMATOLOGY Gender Identity Not on file Sexual Orientation Not on file documented as of this encounter Miscellaneous Notes * Telephone Encounter - Negrita Khan APRN-CNP - 05/17/2017 3:51 PM CDT Could not reach Estrella to return her call. Need to know what kind of vision problems and whether they are related to the headaches. * Telephone Encounter - Jagdish Calderon - 05/17/2017 2:46 PM CDT I spoke with Estrella from [facility] headaches on the lower part of her neck or getting better but the once in front are getting worse. Per Estrella she is now having vision problems. * Telephone Encounter - Negrita Khan APRN-CNP - 05/17/2017 2:43 PM CDT I believe that mom only speaks Jordanian. Brain MRI showed a spot of hyperintensity which could be the end of a blood vessel or a site of a small bleed. MRI should be completed in 2016. No test iscurrently scheduled but has an appt with dc 05/23. * Telephone Encounter - Dawn Lopez - 05/17/2017 2:09 PM CDT I spoke with mom and she needs for the MRI brain results to be re-explained so the physical therapist and mom will be able to understand better. documented in this encounter Plan of Treatment Not on file documented as of this encounter Visit Diagnoses Not on filedocumented in this encounter Care Teams Underwear Trimmer Relationship Specialty Start Date End Date Roderick Almeida MD [address] [facility] [address] [place] [address] PCP - General Pediatrics 03/06/17 documented as of this encounter
--- OUTSIDE RECORDS SUMMARY | 2025-07-10 07:03 | XMS_ITS | Encounter Summary ---
Author Organization [facility] Address [address] [facility] [place] [address] Care Team Providers Care Application Engineer Name Role Phone Roderick Almeida MD Primary Care Provider [phone] Reason for Visit * Reason Onset Date Comments Update 08/13/2017 Encounter Details Date Type Department Care Team (Late st Contact Info) Description 08/13/2017 Telephone [facility] Pediatrics - Neurology [address] [place] [address] Negrita hKan APRN-DOCTOR OF MEDICINE [address] [place] [address] Update Social History Tobacco Use Types Packs/Day Years Used Date Smoking Tobacco: Never Smokeless Tobacco: Never Alcohol Use Standard Drinks/Week Comments No 0 (1 standard drink = 0.6 oz pur e alcohol) Comments No Sex and Gender Information Value Date Recorded Sex Assigned at Not on file Legal Sex Female 5:45 AM COMPLIANCE MONITOR Gender Identity Not on file Sexual Orientation Not on file documented as of this encounter Miscellaneous Notes * Telephone Encounter - Negrita Khan APRN-CNP - 08/13/2017 5:39 PM CDT Ondansetron had receipt confirmed on day it was sent (07/25). Diclofenac was new med for pain. Left a msg on Ira's cell # to please call back. If she calls tomorrow it would be helpful to try me in afternoon clinic. * Telephone Encounter - Dawn Lopez - 08/13/2017 12:09 PM CDT Ira says that she is missing Rx, Ondansetron and she needs to talk to Kesha about pain medication. documented in this encounter Plan of Treatment Not on file documented as of this encounter Visit Diagnoses Not on filedocumented in this encounter Care Teams Application Engineer Relationship Specialty Start Date End Date Roderick Almeida MD [address] [place] [id number] PCP - General Pediatrics 03/06/17 documented as of this encounter
[2025-07-10 07:40] LABS: Glucose Fasting Gestational 89 mg/dL (>/=95)
[2025-07-10 10:06] LABS: Glucose 1 Hour Gest 139 mg/dL (>/=180)
[2025-07-10 10:50] LABS: Glucose 2 Hour Gest 111 mg/dL (>/= 155)
[2025-07-10 11:18] LABS: Glucose 3 Hour Gest 66 mg/dL (>/=140)
== END 2025-07-10 07:01 | disposition home or self-care (01) ==
LOC: ANHLAB 07:01
PROVIDERS: Visit Provider Obstetrics & Gynecology
DX: R73.09 Other abnormal glucose (principal)
CPT/HCPCS: 36415; 82951; 82952

== ENCOUNTER 2025-07-14 22:12 | Observation (INO) | payer OTHER, SELFPAY ==
--- OUTSIDE RECORDS SUMMARY | 2025-07-14 22:24 | XMS_ITS | Encounter Summary ---
Author Organization [facility] Address [address] [place] [address] Care Team Providers Care Engineering Executive Name Role Phone Roderick Almeida MD Primary Care Provider [phone] Reason for Visit * Reason Onset Date Comments Imaging Results 05/17/2017 Encounter Details Date Type Department Care Team (Late st Contact Info) Description 05/17/2017 Telephone [facility] Pediatrics - Neurology [address] [place] [address] Negrita Khan APRN-LICENSING REGISTRATION EXAMINER [facility] [place] [address] Imaging Results Social History Tobacco Use Types Packs/Day Years Used Date Smoking Tobacco: Never Smokeless Tobacco: Never Alcohol Use Standard Drinks/Week Comments No 0 (1 standard drink = 0.6 oz pur e alcohol) Comments No Sex and Gender Information Value Date Recorded Sex Assigned at Not on file Legal 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 Per Estrella she is now having vision problems. * Telephone Encounter - Negrita Khan APRN-CNP - 05/17/2017 2:43 PM CDT I believe that mom only speaks Ugandan. Brain MRI showed a spot of hyperintensity which could be the end of a blood vessel or a site of a small bleed. MRI should be completed in 2016. No test iscurrently scheduled but has an appt with wy 05/23. * Telephone Encounter - Dawn Lopez [...] on filedocumented in this encounter Care Teams Engineering Executive Relationship Specialty Start Date End Date Roderick Almeida MD [address] [facility] [address] [place] [address] PCP - General Pediatrics 03/06/17 documented as of this encounter
--- OUTSIDE RECORDS SUMMARY | 2025-07-14 22:24 | XMS_ITS | Clinical Summary ---
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
--- OUTSIDE RECORDS SUMMARY | 2025-07-14 22:24 | XMS_ITS | Encounter Summary ---
Author Organization [facility] Address [address] [place] [address] Care Team Providers Care Progress Worker Name Role Phone Roderick Almeida MD Primary Care Provider [phone] Reason for Visit * Reason Onset Date Comments Update 08/13/2017 Encounter Details Date Type Department Care Team (Late st Contact Info) Description 08/13/2017 Telephone [facility] Pediatrics - Neurology [address] [place] [address] Negrita Khan APRN-COAL DELIVERER [address] [place] [address] Update Social History Tobacco Use Types Packs/Day Years Used Date Smoking Tobacco: Never Smokeless Tobacco: Never Alcohol Use Standard Drinks/Week Comments No 0 (1 standard drink = 0.6 oz pur e alcohol) Comments No Sex and Gender Information Value Date Recorded Sex Assigned at Not on file Legal Sex Female 5:45 AM VAN HELPER Gender Identity Not on file Sexual [...] on filedocumented in this encounter Care Teams Progress Worker Relationship Specialty Start Date End Date Roderick Almeida MD [address] [place] [address] PCP - General Pediatrics 03/06/17 documented as of this encounter
[2025-07-14 22:30] VITALS: BP 93/54; PULSE 86; TEMP 36.8
[2025-07-14 22:56] LABS: Add Urine Microscopic? YES; Appearance Urine Cloudy (Clear); Glucose Urine UA Negative (Negative); Leukocyte Esterase Ur Negative LEU/UL (Negative); Nitrate Urine Negative (Negative); Non Pathogenic Casts 0-2; Specific Grav Ur 1.024 (1.001-1.035)
[2025-07-14 23:19] VITALS: BMI 50.8
--- NOTE | 2025-07-14 23:19 | OBADM ---
This patient, Ira Snyder, admitted to the OB room OB Post 116 for observation. Patient/family oriented to hospital policies and general routines including ID bracelet, bed and alarms, visiting hours, pain management, procedures, bathroom and other care routines, personal items, smoking policy, room service/diet, and visiting hours. Patient/Family are encouraged to report perceived risks to care and to ask questions if they do not understand what they are told or what they should do.
[2025-07-14 23:33] VITALS: BP 93/54; PULSE 86
--- NOTE | 2025-07-15 09:03 | P.PNOB_ITS ---
OB - Triage/Final Diagnosis Visit Information Comments/Additional reasons for admission: I have assessed the risk for this patient, Ira Snyder, and determined that she would benefit from observation care. Evaluation Laboratory results: Laboratory Tests 07/14/25 22:36 Urine Color Yellow Urine Appearance Cloudy H Urine pH 6.0 Ur Specific [place] 1.024 Urine Protein Trace Urine Glucose (UA) Negative Urine Ketones Negative Ur Blood (Man) 1+ H Urine Nitrate Negative Urine Bilirubin Negative Urine Urobilinogen 1.0 Leukocyte Esterase Rfl Negative Urine RBC 11-20 H Urine WBC 0-5 Ur Squamous Epith Cells Few Urine Bacteria 1+ H Urine Casts 0-2 Vital signs: Vital Signs - 24 hr 07/14/25 22:30 07/14/25 23:33 Temperature 98.3 F Pulse Rate 86 86 Blood Pressure 93/54 L Blood Pressure [Left Arm] 93/54 L Final Diagnosis (1) Pelvic pain affecting : Code(s): O26.899 - Other specified related conditions, unspecified trimester; R10.2 - Pelvic and perineal pain Status: Acute
== END 2025-07-14 23:38 | disposition home or self-care (01) ==
PROVIDERS: Admitting Provider Obstetrics & Gynecology; Visit Provider Obstetrics & Gynecology
DX: O26.893 Other specified pregnancy related conditions, third trimester (principal); R10.2 Pelvic and perineal pain; Z3A.30 30 weeks gestation of pregnancy
CPT/HCPCS: 59025; 81001; A9270; G0378; G0379

== ENCOUNTER 2025-08-25 11:00 | Outpatient (RCR) | payer OTHER, SELFPAY ==
[2025-08-07 10:48] VITALS: BP 112/37; PULSE 82
[2025-08-14 14:12] VITALS: BP 106/61; PULSE 87
--- NOTE | ~2025-08-25 | US_ITS ---
EXAMINATION: US OB BPP wo non-stress DATE: 08/07/2025 11:31 INDICATION: Estimated size greater than expected for estimated gestational age TECHNIQUE: Real-time pelvic ultrasound was performed. The interpreting radiologist was not present for the study. COMPARISON: None. FINDINGS: There is a single living fetus in vertex presentation. The placenta is posterior fundal. heart rate is 129 beats per minute (bpm). Normal amniotic fluid index of 16.9 cm (5th%-95%: 8.1-24.8 cm at 34 weeks estimated gestational age) Biophysical profile performed by the technologist: breathing (30 sec sustained breathing in 30 minutes): 0 out of 2 movement (3 gross body movements in 30 minutes): 2 out of 2 tone (one episode of optsnar-ucihnxzej-zbssqqh limb movement): 2 out of 2 Amniotic fluid pocket (2 cm): 2 out of 2 Total score: 6 out of 8 IMPRESSION: 1. Single living fetus in vertex presentation with heart rate of 129 bpm. 2. Biophysical profile 6 out of 8. 3. Normal amniotic fluid index of 16.9 cm Reviewed, dictated and finalized at location A.
--- NOTE | ~2025-08-25 | US_ITS ---
EXAMINATION: US OB BPP wo non-stress, 08/22/2025 15:00 CDT HISTORY: LGA - Elevated BP Comparison: None Technique: Irby-scale sonographic images were obtained Findings: There is a single live intrauterine in longitudinal lie and vertex presentation, heart rate 149 Placental location posterior and fundal BPP 05/29 LISS 3.61 IMPRESSION: Single live intrauterine detailed above Reviewed, dictated and finalized at location P.
[2025-08-25 11:53] VITALS: BP 111/62; PULSE 92
== END 2025-09-12 08:32 | disposition other institution (70) ==
LOC: ANHOBOP 11:00
PROVIDERS: Visit Provider Obstetrics & Gynecology
DX: O36.63X0 Maternal care for excessive fetal growth, third trimester, not applicable or unspecified (principal); Z3A.34 34 weeks gestation of pregnancy
CPT/HCPCS: 59025; 76819

== ENCOUNTER 2025-09-10 15:57 | Inpatient (IN) | payer OTHER, SELFPAY ==
[2025-09-10] VITALS (71 sets, daily range): BP systolic 92–220; BP diastolic 48–177; PULSE 35–189; TEMP 36.7–37.1; O2SAT 79–100; BMI 51.8
--- NOTE | 2025-09-10 16:28 | LDADM ---
This patient, Ira Snyder, was admitted to Labor/Delivery/Recovery 104 on 09/10/25 at 15:57. Plans for labor, pain management and were discussed with patient. Patient/family oriented to hospital policies and general routines including ID bracelet, bed and alarms, visiting hours, pain management, procedures, bathroom and other care routines, personal items, smoking policy, room service/diet and guest tray routines, infant security routines, and visiting hours. Patient/Family are encouraged to report perceived risks to care and to ask questions if they do not understand what they are told or what they should do. See OBIX for further documentation.
[2025-09-10] MEDS: DINOPROSTONE 10 MG VAG INSERT VAGINAL (16:51)
[2025-09-10 16:56] LABS: Hematocrit 33.8 % (37.0-47.0); Hemoglobin 11.6 g/dL (12.0-15.0); Immature Granulocyte Percent A 0.5 % (0-0.5); Lymphocytes Absolute Auto 1.41 K/mm3 (0.9-3.2); Mean Corpuscular HGB Conc 34.3 g/dl (32-36); Mean Corpuscular Hemoglobin 28.5 pg (26-34); Mean Corpuscular Volume 83.0 fl (80-100); Nucleated Red Blood Cells Absolute Auto 0.000 K/mm3 (0.0-0.012); Nucleated Red Blood Cells Perc 0.0 % (0.0-0.2); Platelet Count Result 261 k/mm3 (150-375); Red Blood Count 4.07 M/mm3 (4.2-5.4); White Blood Count 6.3 K/mm3 (4.5-10.0)
[2025-09-10 17:12] LABS: Alanine Aminotransferase 30 U/L (6-35); Albumin Level 3.4 g/dL (3.5-5.1); Alkaline Phosphatase 243 U/L (38-126); Anion Gap 8 mmol/L (4-12); Aspartate Amino Transferase 31 U/L (14-36); Bilirubin,Total 0.4 mg/dL (0.2-1.3); Blood Urea Nitrogen 11 mg/dL (7-17); Calcium 8.9 mg/dL (8.4-10.2); Carbon Dioxide 18 mmol/L (22-30); Chloride 108 mmol/L (98-107); Estimated CRCL calculation 150 ml/min; Estimated Glomerular Filt Rate > 60; Glucose 79 mg/dL (65-110); Potassium 4.2 mmol/L (3.4-5.0); Sodium 134 mmol/L (137-145); Total Protein 6.4 g/dL (6.3-8.2)
[2025-09-10 17:19] LABS: Uric Acid 5.9 mg/dL (2.5-7.5)
--- NOTE | 2025-09-10 17:40 | P.PNAN_ITS ---
Anes - Eval Pre Procedure Procedure: Labor epidural Date/Time: 09/10/25 17:40 Surgeon: Florentino Preop Diagnosis: Abdominal pain with contractions Pre Op Diagnosis: IOL Patient Data Age: 25 Gender: F Height: 1.63 m Weight: 137 kg Last Vital Signs Pulse 67 09/10/25 17:31 BP 112/59 L 09/10/25 17:31 O2 Del Method Room Air 09/10/25 16:26 Allergies Allergy/AdvReac Type Severity Reaction Status Date / Time No Known Allergies Allergy Verified 09/10/25 16:34 Home Medications ?Medication ?Instructions ?Recorded ?Confirmed ?Type docosahexaenoic acid 200 mg mg PO 02/27/25 09/04/25 Hi story capsule ( DHA) ferrous sulfate 325 mg (65 mg 325 mg PO DAILY 02/27/25 09/10/25 History iron) tablet (Feosol) aspirin 81 mg chewable tablet 81 mg PO DAILY 03/27/25 09/10/25 History Laboratory Tests 09/10/25 09/10/25 16:26 16:26 WBC 6.3 K/mm3 (4.5-10.0) RBC 4.07 L M/mm3 (4.2-5.4) Hgb 11.6 L g/dL (12.0-15.0) Hct 33.8 L % (37.0-47.0) MCV 83.0 fl (80-100) MCH 28.5 pg (26-34) MCHC 34.3 g/dl (32-36) RDW 13.4 % (11.5-14.5) Plt Count 261 k/mm3 (150-375) MPV 10.6 H fl (7.4-10.4) Immature Gran % (Auto) 0.5 % (0-0.5) Neut % (Auto) 67.8 % (45.5-73.1) Lymph % (Auto) 22.2 % (18.3-44.2) [place] % (Auto) 8.7 H % (2.6-8.5) Eos % (Auto) 0.5 % (0-4.4) Baso % (Auto) 0.3 % (0.2-1.2) Lymph # (Auto) 1.41 K/mm3 (0.9-3.2) [place] # (Auto) 0.6 K/mm3 (0.1-0.6) Eos # (Auto) 0.0 K/mm3 (0-0.3) Baso # (Auto) 0.0 K/mm3 (0.0-0.1) Abs Immat Gran (auto) 0.03 K/mm3 (0.00-0.031) Absolute Neuts (auto) 4.3 K/mm3 (1.3-6.7) Absolute Nucleated RBC 0.000 K/mm3 (0.0-0.012) Nucleated RBC % 0.0 % (0.0-0.2) Sodium 134 L mmol/L (137-145) Potassium 4.2 mmol/L (3.4-5.0) Chloride 108 H mmol/L (98-107) Carbon Dioxide 18 L mmol/L (22-30) Anion Gap 8 mmol/L (4-12) BUN 11 D mg/dL (7-17) Creatinine 0.68 L mg/dL (0.7-1.0) Estim Creat Clear Calc 150 ml/min Estimated GFR > 60 (59 - ) Glucose 79 mg/dL (65-110) Uric Acid Cancelled 5.9 mg/dL (2.5-7.5) Calcium 8.9 mg/dL (8.4-10.2) Total Bilirubin 0.4 mg/dL (0.2-1.3) AST 31 U/L (14-36) ALT 30 U/L (6-35) Alkaline Phosphatase 243 H U/L (38-126) Total Protein 6.4 g/dL (6.3-8.2) Albumin 3.4 L g/dL (3.5-5.1) Blood Type A Positive Antibody Screen Pending : gestational age HCG: positive Patient hx anesthesia problems: none Family hx anesthesia problems: none Results Review: All pre-operative results and documents have been reviewed as part of the pre- operative evaluation. [facility] Past Medical History Medical History Morbid obesity No pertinent past medical history Family History Family History Father Kidney disease Mother Diabetes mellitus Arthritis Social History Social History Smoking status: Never smoker Alcohol intake: former Alcohol use details: occasional Substance use: never Substance use type: does not use Do You Feel Safe in your Home?: Yes Lack of Transportation: No Lack of Food: Never True Current Housing: I Have Housing Concerned About Future Housing: No Difficulty Paying Gas/Electric Bills: No Difficulty Paying for Meds: No Currently Unemployed: No Education: High School Diploma/GED Difficulty w/ Childcare or Family Care: No Living arrangements: alone Occupation/Education: occupation Gender identity (if verbalized by the patient): Female Sexual Orientation (if Verbalized by the Patient): Straight or Heterosexual Spiritual care concerns: No Exam Day of Procedure 09/10/25 17:40 Patient weight: super morbidly obese
[2025-09-10 17:56] LABS: Syphilis IgG/IgM Antibody Non-Reactive (Nonreactive)
--- OUTSIDE RECORDS SUMMARY | 2025-09-10 18:15 | XMS_ITS | Data Portability ---
Author Organization [facility] Address [address] [place] [address] Care Team Providers Care Web User Experience Strategist Name Role Phone NAUN WESLEY Customer Care Consultant Assessment No assessment recorded. Plan of Treatment Reminders Order Date Submit Date Provider Last Modified By Organization Details Last Modified Time Details Appointments None recorded. Lab vaginal pathogens panel, CA+probe , vaginal fluid 2022 023 [facility], [address] [place] [address], [address], [place], [address], 3 08:23:37 HIV 1 + 2, meaningfu l use set 2022 023 [facility], [address] [place] [address], [address], [place], [address], 3 08:23:39 RPR (rapid plasma reagin), serum 2022 023 [facility], [address] [place] [address], [address], [place], [address], 3 08:23:38 HBsAg (hepatiti s B surface Ag), EIA, serum 2022 023 [facility], [address] [place] [address], [address], [place], [address], 3 08:23:38 Hepatitis C IgG Ab, qual, serum 2022 023 [facility], [address], [address], [place], [address], 3 08:23:36 test, urine 2022 023 [facility] In-Office Order, Internal Use Only DO Not Attach Compendium DO Not Attach Compendium, Do Not Delete/merge, [id number] 14:43:02 cytology report, thin prep, smear or scraping, cervical or vaginal 2022 [facility], [address], [address], [place], [address], 11:13:35 Referral None recorded. Procedures None recorded. Surgeries None recorded. Imaging US, breast, unilatera l 2022 023 [email or web address] Not available 17:26:32 Medication Orders None recorded. Patient TargetsNo targets recorded. Patient Instructions Encounter Date Encounter Id Patient Instructions Last Modified By Organization Details Last Modified Time 09/12/2023 [id number] A healthy lifestyle: care instructions [email or web address] Not available 09/12/2023 11:50:08 10/03/2023 [id number] A healthy lifestyle: care instructions [email or web address] Not available 10/03/2023 11:29:51 Reason for Referral None Reported. Results Created Date Observation Date Name Description Value Unit Range Abnormal Flag Note LastModifiedBy Organization Detail LastModifiedTime 09/12/2009/18/2023 IGP, RFX APTIM A HPV ASCU diagnosis: Commen t NEGAT CALLI FOR INTRA EPITH ELIAL FRANKLIN Carvalho OR YFN WHITAKER . Not Available [facility] ([facility]) [address] [facility] [address], [place], [address], 09/18/2023 11:13:35 09/12/2009/18/2023 IGP, RFX APTIM A HPV ASCU specimen adequacy: Commen t Satis facto ry for evalu ation . Endoc ervic al and/o r squam ous metap lasti c cells (endo cervi joleen compo nent) are prese nt. Areas of parti ally obscu ring blood are prese nt. Not Available [facility] ([facility]) [address] [place], [address], 09/18/2023 11:13:35 09/12/20 23 09/18/2023 IGP, RFX APTIM A HPV ASCU clinician provided ICD10: Sandeep hemphill N89.8 Z11.3 Z12.4 Not Available [facility] ([facility]) [address] [place], [address], 09/18/2023 11:13:35 09/12/20 23 09/18/2023 IGP, RFX APTIM A HPV ASCU performed by: Sandeep Rivas th, Cytot tran hemphill (ASCP ) Not Available [facility] ([facility]) [address] [place], [address], 09/18/2023 11:13:35 09/12/20 23 09/18/2023 IGP, RFX APTIM A HPV ASCU . . Not Available [facility] ([facility]) [address] [place], [address], 09/18/2023 11:13:35 09/12/20 23 09/18/2023 IGP, RFX APTIM A HPV ASCU note: Sandeep hemphill The Pap smear is a scree huma test desig sabrina to aid in the detec tion of elizabeth ligna nt and malig nant condi tions of the uteri ne cervi x. It is not a diagn ostic proce dure and shoul d not be used as the sole means of detec ting cervi joleen cance r. Both false -posi tive and false -nega tive repor ts do occur . Not Available [facility] ([facility]) [address] [place], [address], 09/18/2023 11:13:35 09/12/20 23 09/18/2023 IGP, RFX APTIM A HPV ASCU test methodology: Commen t This liqui d based ThinP rep(R ) pap test was scree sabrina with the use of an image guide yuly denson Not Available [facility] ([facility]) [address] [facility] [address], [place], [address], 09/18/2023 11:13:35 09/12/20 23 09/18/2023 IGP, RFX APTIM A HPV ASCU . Commen t The HPV DNA refle x crite denae were not met with this speci men resul t there fore, no HPV testi ng was perfo rmed. Not Available [facility] ([facility]) [address] [facility], [place], [address], 09/18/2023 11:13:35 09/12/20 23 09/13/2023 HCV ANTIB CAMERON hep C virus Ab Non Reacti ve nonrea ctive HCV antib cameron alone does not diffe renti ate betwe en previ ously resol isaias infec tion and activ e infec tion. Equiv ocal and React calli HCV antib cameron resul ts shoul d be follo wed up with an HCV RNA test to suppo rt the diagn osis of activ e HCV infec tion. Not Available [facility] ([facility]) [address] [facility], [place], [address], 09/19/2023 08:23:36 09/12/20 23 09/16/2023 NUSWA B VAGIN ITIS PLUS (VG+) atopobium vaginae Low - 0 score Not Available [facility] ([facility]) [address] [facility], [place], [address], 09/19/2023 08:23:37 09/12/20 23 09/16/2023 NUSWA B VAGIN ITIS PLUS (VG+) bvab 2 Low - 0 score Not Available [facility] ([facility]) [address] [facility], [place], [address], 09/19/2023 08:23:37 09/12/20 23 09/16/2023 NUSWA B VAGIN ITIS PLUS (VG+) megasphaera 1 Low - 0 score Calcu late total score by darrel redd the 3 indiv idual bacte rial vagin osis (BV) marke r score s toget her. Total score is inter prete d as follo ws: Total score 0-1: Indic ates the absen ce of BV. Total score 2: Indet ermin ate for BV. Addit ional clini joleen data shoul d be evalu ated to estab agapito a diagn osis. Total score 3-6: Indic ates the prese nce of BV. This test was devel oped and its perfo rmanc e andrade cteri stics deter mined by [facility]. It has not been clear ed or appro isaias by the Food and Drug Admin istra tion. Not Available [facility] ([facility]) [address] [place], [address], 09/19/2023 08:23:37 09/12/20 23 09/16/2023 NUA B VAGIN ITIS PLUS (VG+) chlamydia trachomatis, CA Negati ve negati ve Not Available [facility] ([facility]) [address] [place], [address], 09/19/2023 08:23:37 09/12/20 23 09/16/2023 NUSWA B VAGIN ITIS PLUS (VG+) neisseria gonorrhoeae, CA Negati ve negati ve Not Available [facility] ([facility]) [address] [place], [address], 09/19/2023 08:23:37 09/12/20 23 09/17/2023 NUSWA B VAGIN ITIS PLUS (VG+) trich vag by CA Negati ve negati ve Not Available [facility] ([facility]) [address] [facility], [place], [address], 09/19/2023 08:23:37 09/12/20 23 09/19/2023 NUSWA B VAGIN ITIS PLUS (VG+) neel albicans, CA Positi ve negati ve abnormal Not Available [facility] ([facility]) [address] [facility], [place], [address], 09/19/2023 08:23:37 09/12/20 23 09/19/2023 NUSWA B VAGIN ITIS PLUS (VG+) neel glabrata, CA Negati ve negati ve Not Available [facility] ([facility]) [address] [facility], [place], [address], 09/19/2023 08:23:37 09/12/20 23 09/13/2023 HBSAG SCREE N HBsAg screen Negati ve negati ve Not Available [facility] ([facility]) [address] [facility], [place], [address], 09/19/2023 08:23:38 09/12/20 23 09/13/2023 RPR, RFX QN RPR/C ONFIR M TP RPR Non Reacti ve nonrea ctive Not Available [facility] ([facility]) [address] [facility], [place], [address], 09/19/2023 08:23:38 09/12/20 23 09/13/2023 HIV AB/P2 4 AG WITH REFLE X HIV Ab/P24 Ag screen Non Reacti ve nonrea ctive HIV Negat calli HIV-1 /HIV- 2 antib odies and HIV-1 p24 antig en were NOT detec grazyna. There is no labor atory evide nce of HIV infec tion. Not Available [facility] ([facility]) [address] [facility], [place], [address], 09/19/2023 08:23:39 09/12/20 23 09/12/2023 pregn watson test, urine HCG negati ve Not Available In-Office Order Internal Use Only DO Not Attach Compendium DO Not Attach Compendium, Do Not Delete/merge, [id number] 09/12/2023 11:26:08 Result Notes None recorded. Problems Name Problem SNOMED Code Status Onset Date Resolution Date Notes Provider Name and Address Organization Details Recorded Time Headache 31841437 Active 018 Angie Valencia MA null, [place] [facility] 08/19/2018 16:37:53 Problem Notes None recorded. Procedures Surgical History Date Name Laterality Status Provider Name and Address Organization Details Recorded Time 3 Control Implant Removal completed [facility] Attn: Accounting,[address] [facility], [place], [address], [facility] 10/03/2023 11:28:46 8 Control Implant Insertion completed Florentino Hernandez [place] [facility] 08/19/2018 17:02:55 Imaging Results None recorded. Procedure Notes None recorded. Medical Equipment None Reported. Allergies No known drug allergies Medications Name Sig Start Date Stop Date Status Note LastModified by Organization Details LastModified Time amoxicillin 500 mg capsule TAKE ONE CAPSULE BY MOUTH THREE TIMES DAILY FOR 7 DAYS 09/12 completed Not Available Not Available Not Available ibuprofen 800 mg tablet TAKE 1 TABLET BY MOUTH THREE TIMES DAILY NEEDED FOR PAIN 09/12 completed Not Available Not Available Not Available fluconazole 150 mg tablet TAKE 1 TABLET BY MOUTH EVERY DAY FOR 1 DAY DIRECTED 10/03 completed Not Available Not Available Not Available penicillin V potassium 500 mg tablet TAKE 1 TABLET BY MOUTH EVERY 12 HOURS FOR 10 DAYS 09/12 completed Not Available Not Available Not Available doxycycline hyclate 100 mg tablet TAKE 1 TABLET BY MOUTH TWICE DAILY FOR 7 DAYS 09/12 completed Not Available Not Available Not Available Nexplanon 68 mg subdermal implant Inject 1 implant by subcutane ous route. 10/06 completed Not Available Not Available Not Available Vitals Date Recorded Body height Body mass index (BMI) Body weight Heart rate Systolic And Diastolic Provider Name and Address Organization Details Last Updated DateTime 09/12/2023 162.56 cm 51.8 kg/m2 500075.4 9 g 80 /min 131/73 mm[Hg] Debbie Ocampo MA [facility] 09/12/2023 11:12:15 Date Recorded Body height Body mass index (BMI) Body weight Heart rate Systolic And Diastolic Provider Name and Address Organization Details Last Updated DateTime 10/03/2023 162.56 cm 51.7 kg/m2 208140.7 g 62 /min 107/64 mm[Hg] Debbie ELIANE Ocampo [facility] 10/03/2023 11:19:42 Social History Question Answer Notes LastModified by Organizat ion Details LastModified Time Tobacco Smoking Status Never Smoker Debbie ELIANE Ocampo null, [facility] 09/12/2023 11:23:58 Are You Blind Or Do You Have Difficulty Seeing? No Information not available 09/12/2023 What Is Your Level Of Caffeine Consumption? Moderate Information not available 09/12/2023 Are You Deaf Or Do You Have Serious Difficulty Hearing? No Information not available 09/12/2023 What Type Of Diet Are You Following? REGULAR Information not available 09/12/2023 What Was The Date Of Your Most Recent Tobacco Screening? 09/12/2023 Information not available 09/12/2023 How Many Children Do You Have? 0 Information not available 09/12/2023 What Is Your Relationship Status? Single Information not available 09/12/2023 Do You Use Your Seat Belt Or Car Seat Routinely? Yes Information not available 09/12/2023 Are You Sexually Active? Yes Information not available 09/12/2023 Do You Have Smoke And Carbon Monoxide Detectors In Your Home? Yes Information not available 09/12/2023 Are You Passively Exposed To Smoke? Yes Information no t available 09/12/2023 Has Tobacco Cessation Counseling Been Provided? Yes Information not available 09/12/2023 On What Date Was Tobacco Cessation Counseling Provided? 09/12/2023 Information not available 09/12/2023 Sex: Female Functional Status Question Answer Note LastModified by Organizat ion Details LastModified Time Do you use any illicit or recreational drugs? No Information not available 09/12/2023 Do you or have you ever used any other forms of tobacco or nicotine? No Information not available 09/12/2023 What is your level of alcohol consumption? Occasional Information not available 09/12/2023 Do you or have you ever used smokeless tobacco? Never used smokeless tobacco Information not available 09/12/2023 Are you currently employed? Yes Information not available 09/12/2023 Are you able to care for yourself independently? 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 Never used electronic cigarettes Information not available 09/12/2023 What is your exercise level? Occasional Information not available 09/12/2023 Mental Status None recorded. Family History Relationship Description Onset Age of this Age Resolved Age Notes LastModified by Organization Details LastModified Time Father Kidney disease abyasma Not available 2017 16:37:30 Medical History Condition Response Other N High Blood Pressure N Breast Cancer N Thyroid Problems N Kidney or Bladder Problems N GI Problems N Depression N Blood Clots N Lung Disease N Acne N Breast Problem N Eating Disorder N Anemia N Anesthesia Complications N Headaches/Migraines N Anxiety Disorder N Diabetes N Ovarian Cancer N Muscle, Joint, or Bone Problems N Blood Transfusions N Seizures/Epilepsy N Polyps N Infertility N Acid Reflux (GERD) N Cancer N Abuse/Domestic Violence N Asthma N Endometriosis N High Cholesterol N Hepatitis N Liver Disease N Heart Disease N Pre-Eclampsia N Osteoporosis N Gynecological History Statement/Question Response Flow Moderate Date of LMP 08/22/2023 STIs/STDs N HPV Vaccine N Duration of Flow (days) 4 Age at Menarche 14 Current Control Method None Sexually Active? Y Menses Monthly N Date of Last Pap Smear LMP Definite Desired Control Method Implant Obstetrics History GPAL:G 0 P 0 0 0 0 Immunizations Vaccine Type Date Status Note Provider Nam e and Address Organization Details Recorded Time COVID-19, mRNA, LNP-S, PF, 100 mcg/0.5mL dose or 50 mcg/0.25mL dose 01/15/2021 completed Tian Nagy RN null, [place] - [facility] 01/15/2021 16:06:25 COVID-19, mRNA, LNP-S, PF, 100 mcg/0.5mL dose or 50 mcg/0.25mL dose 02/12/2021 completed Miryam Yanes MA tracey, [place] - [facility] 02/12/2021 12:28:14 COVID-19, mRNA, LNP-S, PF, 100 mcg/0.5mL dose or 50 mcg/0.25mL dose 08/26/2021 completed Nathaniel Mahajan MA tracey, [place] - [facility] 08/29/2021 11:22:55 Past Encounters Encounter ID Performer Location Encounter Start Date Encounter Closed Date Diagnosis/Indication Diagnosis SNOMED-CT Code Diagnosis ICD10 Code Diagnosis IMO Codes Diagnosis Note [id number] Florentino Hernandez MD [facility] ([facility]) [address] [place] [address] 08/19/2018 15:53:31 08/20/2018 09:00:11 Routine gynecologic examination done 8500921161 9101 Z01.419 -speculum and bimanual examinatio ns completed, unremarkab le-UPT(-) today; no recent unprotecte d intercours e, last intercours e 3wks ago w/ condom-cer vical cancer, breast cancer, colon cancer, bone density, diabetes, thyroid and lipid screening not indicated due to age-after counseling on risks/bene fits and expected side effects of Nexplanon, informed consent obtained and device inserted (see procedure note)-rout joyce STI panel completed, recall/audie at as needed [id number] Dimitri Hollis MD [facility] ([facility]ult Med) [address] [place] [address] 01/15/2021 13:44:41 01/21/2021 14:31:30 Administration of SARS-CoV-2 antigen vaccine 375562342 Z23 [id number] Dimitri Hollis MD [facility] (Adult Med) [address] [place] [address] 02/12/2021 10:50:41 02/15/2021 16:53:43 Administration of SARS-CoV-2 antigen vaccine 340318079 Z23 [id number] Dimitri Hollis MD [facility] ([facility]ult Med) [address] [place] [address] 08/26/2021 14:05:25 08/31/2021 12:06:04 Administration of SARS-CoV-2 mRNA vaccine 2312764892 Z23 [id number] Tasneem Mackenzie MD [facility] ([facility]) [address] [place] [address] 09/12/2023 10:55:09 09/14/2023 09:53:38 Gynecologic examination 39188612 Z01.419 Normal gynecologi c exam today.Cerv ical cancer screening: No previous. Updated todayBreas t cancer screening: Reviewed recommenda tions for initiation at age 40 with annual screening. Discussed SBEColonos copy: n/aSTI screening: routine nuswab, treat as needed. Safe sex practices discussed. Contracept ion: None--Nexp lanon placed 08/19/2018 (>5 years)Diet /exercise: Counseled regarding importance of physical activity, healthy diet and appropriat e calcium intake.RTC in 1yr Screening for malignant neoplasm of cervix 529728712 Z12.4 -No previous pap due to age-Cervix grossly normal-Pap updated today Contracept ion care management 329905806 Z30.9 -Nexplanon placed 08/19/2018 . Desires removal.-D iscussed alternativ e contracept ion given device past expiration . Pt declines.- Scheduled for removal 10/03/23 Morbid obesity 285370840 E66.01 BMI 51.8 Venereal d isease screening 842601504 Z11.3 -Will treat as indicated. Vaginal odor 500070802 N 89.8 -No discharge on exam-Nuswa b sent, will treat as indicated. Pain of right breast 310 2087402 N64.4 -Given pain present x few months and ttp on exam, will order US to assess.-Re assurance provided no palpable masses on exam. [id number] Tasneem Mackenzie MD [facility] ([facility]) [address] [place] [address] 10/03/2023 10:56:44 10/04/2023 16:16:33 Removal of subcutaneous contraceptive 588469891 Z30.46 -Removed without complicati on. Denies paresthesi as.-Discus sed proper wound care. Keep steri-stri ps and band-aid in place x 3-5 days. Keep pressure bandage in place x 24 hours.-NSA IDs prn for pain. Call if develop severe pain, fever, or chills. Morbid obesity 513501238 E66.01 BMI 51.7 Health Concerns Section Related Observation LastModified by Organization Detai ls LastModified Time None Recorded Concern Status LastModified by Organization Details LastModified Time None Recorded Advance Directives Directive None Recorded Payers Insurance Date Sequence Insurance Name Policy Number Policy Galeana Covered Member ID Galeana Member ID Guarantor Name 09/12/2023 COVID19 [facility] [employer] Ira Goddard [id number] Ira Goddard 01/15/2021 1 *SELF PAY* Dat Goddard 09/12/2023 1 [facility] (MEDICAID HMO) Ira Goddard [id number] Ira Goddard 09/12/2023 SLIDING FEE SCHEDULE - DISCOUNT Ira Goddard 09/12/2023 SLIDING FEE SCHEDULE - DISCOUNT Ira Goddard 10/03/2023 SLIDING FEE SCHEDULE - DISCOUNT Irajohn Goddard Notes Date Note Type Note Provider Name and Address Organization Details Recorded Time 3 text/html Annual GYNReported by PatientGenitourinary symptomsFor menstrual cycle, patient reportsbleeding between periods. For vagina, patient reportsfoul-smelling. For urinary symptoms, patient reportsno hematuriaandno incontinence. For vulva, patient reportsno genital lesion.Breast symptomsFor breast, patient reportsbreast painbut reportsno breast lumpandno nipple discharge.Endocrine symptomsFor sexual complaints, patient reportsno sexual complaints,no pain during intercourse, andnormal libido. For menopausal symptoms, patient reportsno menopausal symptomsandnormal vaginal lubrication.Preventative measuresFor preventive measures, patient reportsencourage self breast examination,encourage regular exercise,encourage no tobacco use, andencourage regular mammograms starting age 40. 23 yo G0 presents for annual wwe. No previous pap given age. Nexplanon placed 08/19/2018. Pt desires removal. Declines alternative contraception at this time. Reports occassional intermenstrual bleeding since Nexplanon insertion. Denies amenorrhea or oligomenorrhea. C/o vaginal odor x few weeks. Denies discharge, itching, irritation, pelvic pain, dyspareunia, or postcoital bleeding. Unprotected intercourse with 1 male partner. Also reports R breast pain x few months. States feels something but is unsure if just normal breast tissue. Denies nipple discharge, skin changes, or FMHx breast cancer. [facility]LEX[facility]RIA MEDINA Attn: Accounting,[address] [place], [address], [facility] 09/12/2023 12:00:22 3 text/html ROS as noted in the HPI 23 yo G0 presents for Nexplanon removal. Denies complaints. Declines alternative contraception at this time. ALEXANDRIA MEDINA Attn: Accounting,[address] [place], [address], [facility] 10/03/2023 11:30:15 OBGyn Episode No OBEpisode recorded.
--- OUTSIDE RECORDS SUMMARY | 2025-09-10 18:15 | XMS_ITS | Clinical Summary ---
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
--- OUTSIDE RECORDS SUMMARY | 2025-09-10 18:15 | XMS_ITS | Encounter Summary ---
Author Organization [facility] Address [address] [facility] [place] [address] Care Team Providers Care Hydraulic Miner Name Role Phone Roderick Almeida MD Primary Care Provider [phone] Reason for Visit * Reason Onset Date Comments Update 08/13/2017 Encounter Details Date Type Department Care Team (Late st Contact Info) Description 08/13/2017 Telephone [facility] Pediatrics - Neurology [address] [place] [address] Negrita Khan APRN-RESEARCH PROFESSIONAL [address] [place] [address] Update Social History Tobacco Use Types Packs/Day Years Used Date Smoking Tobacco: Never Smokeless Tobacco: Never Alcohol Use Standard Drinks/Week Comments No 0 (1 standard drink = 0.6 oz pur e alcohol) Comments No Sex and Gender Information Value Date Recorded Sex Assigned at Not on file 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
--- OUTSIDE RECORDS SUMMARY | 2025-09-10 18:15 | XMS_ITS | Encounter Summary ---
Author Organization [facility] Address [address] [facility] [place] [address] Care Team Providers Care Pr Specialist Name Role Phone Roderick Almeida MD Primary Care Provider [phone] Reason for Visit * Reason Onset Date Comments Imaging Results 05/17/2017 Encounter Details Date Type Department Care Team (Late st Contact Info) Description 05/17/2017 Telephone [facility] Pediatrics - Neurology [address] [place] [id number] Negrita Khan APRN-BREWERY CELLAR WORKER 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 Per Estrella she is now having vision problems. * Telephone Encounter - Negrita Khan APRN-CNP - 05/17/2017 2:43 PM CDT I believe that mom only speaks Latvian. Brain MRI showed a spot of hyperintensity which could be the end of a blood vessel or a site of a small bleed. MRI should be completed in 2016. No test iscurrently scheduled but has an appt with [place] 05/23. * Telephone Encounter - Dawn Lopez [...] on filedocumented in this encounter Care Teams Pr Specialist Relationship Specialty Start Date End Date Roderick Almeida MD [address] [facility] [address] [place] [address] PCP - General Pediatrics 03/06/17 documented as of this encounter
--- OUTSIDE RECORDS SUMMARY | 2025-09-10 18:15 | XMS_ITS | Clinical Summary ---
Author Organization [facility] Address [address] [place] [address] Care Team Providers Care Skull Grinder Name Role Phone Roderick Almeida MD Primary Care Provider Source Comments [facility],non-owned Affiliates and Associated Physician Practices is amultiple site organization consisting of ambulatory clinics and hospital sitesin [place], [place], [place] and [place]. This disclosure is being madepursuant to the Care Everywhere program and may not contain all information available regarding this patient. Last updated 18.[facility] Allergies No known active allergies Medications * Be aware that medications may not be up to date on this document. Alwaysverify current medications with the patient. ondansetron, disintegrating, (ZOFRAN ODT) 4 MG tablet Take 1 Tab by mouth every 6 hours as needed for Nausea/Vomiti ng Allow tablet to dissolve on the tongue 20 Tab 3 07/25/2017 Active ibuprofen (MOTRIN) 200 MG tablet Take 2 tablets by mouth every 6 hours as needed for Pain 0 09/21/2017 Active Active Problems Problem Noted Date Diagnosed Date Vitamin D deficiency 11/19/2017 Hepatic steatosis 05/22/2017 Abdominal pain 05/22/2017 Chronic headache 04/16/2017 Keloid scar 03/19/2013 Overview (03/19/2013): Referred to plastic service for evaluation of keloid on left shoulder Estimated Date of Delivery Comme nts Yes 09/16/2025 Based on Ultraso und Encounters Date Type Department Care Team Description 08/04/2025 3:10 PM CDT - 08/04/2025 11:59 PM CDT Hospital Encounter [facility] [address] [place] [id number] Tulio Bhardwaj MD Discharge Disposition: Home or Self Care 06/24/2025 7:30 AM CDT - 06/24/2025 11:59 PM CDT Hospital Encounter [facility] [address] [place] [id number] Aure Mena MD Discharge Disposition: Home or Self Care 06/24/2025 Travel from Last 3 Months Family History Medical History Relation Name Comments Negative Family History Neg Hx Social History Tobacco Use Types Packs/Day Years Used Date Smoking Tobacco: Never Smokeless Tobacco: Never Alcohol Use Standard Drinks/Week Comments No 0 (1 standard drink = 0.6 oz pur e alcohol) Estimated Date of Delivery Comme nts Yes 09/16/2025 Based on Ultraso und Sex and Gender Information Value Date Recorded Sex Assigned at Not on file Legal Sex Female 5:45 AM HEAD PACKAGER Gender Identity Not on file Sexual Orientation Not on file Last Filed Vital Signs Vital Sign Reading Time Taken Comments Blood Pressure 121/46 11/30/2018 1:40 PM HEAD PACKAGER Pulse 70 11/30/2018 1:40 PM HEAD PACKAGER Temperature 36.9 C (98.4 F) 11/30/2018 1:40 PM HEAD PACKAGER Respiratory Rate 18 11/30/2018 1:40 PM HEAD PACKAGER Oxygen Saturation 100% 11/30/2018 1:40 PM HEAD PACKAGER Inhaled Oxygen Concentration - - Weight 122.4 kg (269 lb 13.5 oz) 2018 10:14 AM HEAD PACKAGER Height 165.1 cm (5' 5) 11/30/2018 10:1 4 AM HEAD PACKAGER Body Mass Index 44.9 11/30/2018 10:14 AM HEAD PACKAGER Plan of Treatment Health Maintenance Due Date Last Done Comments HIV SCREENING 2015 HPV VACCINE (1 - 3-dose series) 2015 CHLAMYDIA/GONORRHEA SCREENING 2016 HEPATITIS C SCREENING 05/04/2018 DTAP/TDAP/TD VACCINES (1 - Tdap) 2019 HEPATITIS B VACCINE (1 of 3 - 19+ 3-dose series) 2019 PAP SMEAR 2021 DEPRESSION SCREENING 10/22/2024 OB-ONE HOUR GLUCOSE 06/10/2025 OB-TDAP CURRENT 06/17/2025 05/02/2011 COVID-19 VACCINE (4 - 2024-2 6 season) 2025 08/26/2021, 02/12/2021, 01/15/2021 INFLUENZA VACCINE (#1) 2025 OB-RHOGAM INJECTION 06/24/2025 OB-GROUP B STREP SCREEN 08/12/2025 ZOSTER VACCINE (1 of 2) 2050 HIB VACCINE Aged Out No longer eligi ble based on patient's age to complete this topic MENINGOCOCCAL (Group B) VACCINE SHARED DECISION-MAKING Aged Out No longer eligible based on patient's age to complete this topic MENINGOCOCCAL GROUPS A/C/Y/W VACCINE Aged Out No longer eligible b ased on patient's age to complete this topic PNEUMOCOCCAL VACCINE Aged Out No long er eligible based on patient's age to complete this topic Respiratory Syncytial Virus (RSV) Vaccine Pt: or over 60 yrs (No Doses Required) Completed Procedures Procedure Name Priority Date/Time Associated Diagnosis Comments SONOGRAM - COMPLETE Routine 08/04/2025 3 :18 PM CDT Encounter for ultrasound to assess growth (HCC) Obesity affecting in second trimester, unspecified obesity type (HCC) 33 weeks gestation of (HCC) SONOGRAM - COMPLETE Routine 06/24/2025 7 :36 AM CDT Obesity affecting in second trimester, unspecified obesity type (HCC) Encounter for ultrasound to assess growth (HCC) 27 weeks gestation of (HCC) Encounter for follow-up ultrasound of anatomy (HCC) from Last 3 Months Results * Sonogram - Complete (08/04/2025 3:18 PM CDT) Only the most recent of2 resultswithin the time period is included. Linked Results Indication ======== Incomplete anatomy Obesity complicating , Class 3 - BMI of 40.0 or greater Chronic hypertension (CHTN) complicating History ====== OB History 1 Maternal Assessment Physical Exam Height 163 cm, 5 ft 4 in. Initial weight 122 kg, 269 lb. Initial BMI 46.17 kg/m Method ====== Transabdominal ultrasound. View: Sufficient ========= [place] . Number of fetuses: 1 Dating ====== Date Details Gest. age HANNAH Stated HANNAH 33 w + 6 d 09/16/2025 Previous U/S 02/11/2025 GA, GA 9 w + 0 d 33 w + 6 d 09/16/2025 U/S 08/04/2025 based upon AC, BPD, Femur, HC 35 w + 3 d 09/05/2025 Assigned dating based on ultrasound (GA), selected on 05/01/2025 33 w + 6 d 09/16/2025 General Evaluation Cardiac activity present. FHR 150 bpm. Presentation: cephalic Placenta: Placental site: posterior Amniotic fluid: Amount of AF: normal. MVP 6.3 cm. LISS 19.9 cm. Q1 1.7 cm, Q2 6.3 cm, Q3 6.1 cm, Q4 5.9 cm Biometry BPD 87.4 mm 35w 2d 85% Hadlock HC 325.2 mm 36w 6d 86% Hadlock AC 316.9 mm 35w 4d 92% Hadlock Femur 65.6 mm 33w 6d 38% Hadlock Humerus 56.2 mm 32w 5d 27% Henna HC / AC 1.03 Weight Calculation: EFW 2,626 g 82% Hadlock EFW (lb,oz) 5 lb 13 oz EFW by Hadlock (TBQ-[id number]-XB-FL) overall normal range, but the AC is >90% Growth Overview Exam date GA BPD (mm) HC (mm) AC (mm) FL (mm) HL (mm) EFW (g) 05/01/2025 20w 2d 49.2 74% 179.8 48% 162.4 77% 35 69% 33 81% 400 86% 05/29/2025 24w 2d 62.2 76% 221.9 29% 208.1 75% 44.7 52% 41.3 62% 761 74% 06/24/2025 28w 0d 69.1 31% 258.9 24% 255.9 89% 54.1 54% 48.6 60% 1334 78% 08/04/2025 33w 6d 87.4 85% 325.2 86% 316.9 92% 65.6 38% 56.2 27% 2626 82% Anatomy The following structures appear normal: Heart / Thorax 4-chamber view. Abdomen Stomach. Kidneys. Bladder. sex: male. Impression ========= Single, live, intrauterine at 33w 6d The size is overall normal range, but the AC is >90% The amniotic fluid volume is upper-normal Follow-up ======== Start weekly NST+BPP at 34 weeks Follow-up U/S for growth at 37 weeks if undelivered Coding ====== Diagnoses O10.013, I10: Pre-existing essential hypertension complicating , Essential (primary) hypertension Z36.3: Encounter for screening for malformations O99.213, E66.813: Obesity complicating , Class 3 - BMI of 40.0 or greater Z36.2: Encounter for other screening follow-up Procedures 93577: US Preg Uterus Follow Up [employer] PACS Anatomical Region Laterality Modality Other 08/04/2025 3:18 PM CDT Sophie Good MD [facility] ORDERABLES Edited Result - Final from Last 3 Months Insurance [facility] [employer] Care Teams Skull Grinder Relationship Specialty Start Date End Date Roderick Almeida MD [facility] [address] [address] PCP - General Pediatrics 03/06/17
[2025-09-10] MEDS: fentaNYL CITRATE INJ (*CRX) 100 MCG/2 ML VIAL 50 MCG IV PUSH (19:32)
[2025-09-10] MEDS: LACTATED RINGERS 1,000 ML 125 ML IV CONT ×2 (21:56→23:20)
[2025-09-10] MEDS: fentaNYL CITRATE INJ (*CRX) 100 MCG/2 ML VIAL IV PUSH (21:56)
[2025-09-11] VITALS (146 sets, daily range): BP systolic 76–163; BP diastolic 44–119; PULSE 25–281; RESP 16–18; TEMP 36.7–37.4; O2SAT 80–100
[2025-09-11] MEDS: OXYTOCIN 30 UNITS/NS 500 ML 30 UNITS/500 ML BAG IV CONT (06:18)
[2025-09-11] MEDS: ONDANSETRON INJ 4 MG/2 ML VIAL IV PUSH (07:45)
--- NOTE | 2025-09-11 09:12 | S_PTH ---
PATIENT: Ira Sutherland LOC: [facility] U#:[id number] AGE/SX: 25/F ROOM: 282 RE09/10/[address]: Mark Romero MD : [id number] BED: 00 DIS: 09/12/2025 SPEC #: [id number] RECD: 09/11/25 12:59 STATUS: SERENITY REQ #: [id number] ESCOBAR: 09/11/25 09:[address]: Mark Romero DEPT: [facility] Surgical RECD BY: Saba Zavala ENTERED: 09/11/25 12:59 SP TYPE: Surgical OTHR DR: Sophie Good MD UNKNOWN,DOCTOR Tissues: A - Placenta Procedures: Hematoxylin and Eosin Stain Gross and Microscopic Level 5
[2025-09-11] MEDS: OXYTOCIN 30 UNITS/NS 500 ML 30 UNITS/500 ML BAG 125 UNITS IV CONT (09:44)
--- NOTE | 2025-09-11 10:27 | WPDHPUPDATE1 ---
History and Physical Update Update Date/Time: 09/11/25 10:27 History and Physical has been reviewed, including an updated exam of the patient. There are NO changes in the patient's condition. Risks, benefits, and alternatives have been discussed and questions answered. Patient agrees to proceed with procedure.
--- NOTE | 2025-09-11 10:27 | WPDOBADMIT ---
Obstetrics - Admit Note Admission Note: record reviewed. No pertinent additions to the history and/or any subsequent changes in the physical findings that are not consistent with the expected course of the were found. Additions to the history and/or subsequent changes in the physical findings follow. None.
--- NOTE | 2025-09-11 10:27 | PM.OBPRVD ---
OB - Vaginal Delivery Note Procedure Delivery date: 09/11/25 Intrapartal Events: Other ( meconium stained fluid) Induction method: Per Cervidil Protocol Delivery augmentation: Pitocin Delivery monitor: External FHT and Internal Uterine Route of delivery: Episiotomy description: None Laceration Description: Perineal - 2nd Degree Delivery repair: chromic Specimen: Yes Quantitative Blood Loss (ml): 300 Anesthesia type: Epidural ( and local for repair) Disposition: PACU Complications: No immediate complications Narrative: patient prepped and draped usual for this procedure. Maternal expulsive efforts readily delivered vertex and wrist baby without difficulty. Cord was clamped and cut and placenta delivered spontaneously. Uterus well contracted with minimal bleeding. Second-degree laceration was noted and approximated using 2-0 chromic vaginal tissue deep tissue in the subcuticular layer of 4-0 Monocryl on the perineum the patient was feeling still injected with 2% lidocaine. Uterus was well contracted no further bleeding and immediate postoperative condition of mother and baby both excellent. [place] Baby Gestational Age by Date: 39 Infant gender: Male Weight (pounds): 8 Weight (ounces): 8 presentation: vertex Placenta delivery description: Spontaneous Cord Vessel Description: 3 Vessels score one minute: 8 score five minutes: 9
--- NOTE | 2025-09-11 12:35 | PC.NURSE ---
Patient transferred to post room #282 per wheelchair from labor and delivery. Support person present. Oriented to unit, room, information board, rooming in, admission packet and security measures. Patient verbalizes understanding.
[2025-09-11] MEDS: IBUPROFEN 600 MG TABLET PO (20:22)
[2025-09-12 04:24] LABS: Hematocrit 29.5 % (37.0-47.0); Hemoglobin 9.8 g/dL (12.0-15.0)
[2025-09-12] MEDS: MULTIVIT/MIN/PREN/FOL AC/IRON TABLET 1 TAB PO (08:26)
[2025-09-12] MEDS: IBUPROFEN 600 MG TABLET PO (08:26)
[2025-09-12 08:39] VITALS: BP 136/56; PULSE 73; RESP 16; TEMP 36.7; O2SAT 97
--- NOTE | 2025-09-12 08:46 | P.DS_ITS ---
DS: Admitting Diagnosis Discharge Date 1121 2024 Admitting Diagnosis DS: Discharge Diagnosis Discharge Diagnosis (1) , delivered: Code(s): O80 - Encounter for full-term uncomplicated delivery Status: Acute OB - DS: Summary OB Procedures : None OB Procedures Intrapartum: Spontaneous Vag Delivery OB Procedures: : None Peripartum Data Laceration Description: Perineal - 2nd Degree Episiotomy description: None Time Spent with Patient Time attestation: Total time spent providing and/or coordinating discharge services: DS: Data Data Completed and Pending Pending studies at discharge: Pending at discharge 09/11/25 09:12 Surgical [PTH] Routine Labs on day of discharge: Labs from last 24 hours 09/12/25 04:04 Hgb 9.8 L Hct 29.5 L Discharge Plan Discharge Discharging Clinician: Mark Romero Patient Disposition: Home Activity: no straining and pelvic rest Diet: as tolerated Patient Instructions: Antibiotic Form Patient Language: Hungarian Stand Alone Forms: General Discharge Information Follow-up/Referrals: Mark Romero MD [Physician, [employer]OCI[employer]] - 3 Weeks Discharge Medications: New ibuprofen 600 mg Tablet 600 mg PO Q6H PRN (Reason: Cramping) Qty: 30 0RF Continued DHA 200 mg capsule PO ferrous sulfate [Feosol] 325 mg (65 mg iron) tablet 325 mg PO DAILY aspirin 81 mg tablet,chewable 81 mg PO DAILY Date of admission: 09/10/25 15:57 Primary Care Provider: UNKNOWN,DOCTOR Admitting Provider: Sophie Good Attending physician on admission: Sophie Good Condition: Stable
[2025-09-14 10:17] VITALS: BP 137/64; PULSE 69; RESP 18; TEMP 36.9; O2SAT 100
== END 2025-09-12 11:40 | disposition home or self-care (01) | DRG 560 ==
LOC: ANHOB2 09-12 08:50 → ANHLDR 09-14 09:36 → ANHOB2 09-14 09:36
PROVIDERS: Admitting Provider Obstetrics & Gynecology; Visit Provider Obstetrics & Gynecology
DX: O10.92 Unspecified pre-existing hypertension complicating childbirth (principal); Z37.0 Single live birth; Z3A.39 39 weeks gestation of pregnancy; O99.214 Obesity complicating childbirth; E66.01 Morbid (severe) obesity due to excess calories; O70.1 Second degree perineal laceration during delivery; O77.0 Labor and delivery complicated by meconium in amniotic fluid
CPT/HCPCS: 36415; 80053; 84550; 85014; 85018; 85025; 86593; 86850; 86900; 86901; 88307; A9270; J2405; J2590; J2795; J3010; J7120